=== PATIENT | female | born 2000 | race American Indian/Alaskan Native ===

== ENCOUNTER 2018-10-04 03:41 | Emergency (ER) | payer SELFPAY ==
[2018-10-04 04:01] VITALS: BP 111/64
[2018-10-04 04:28] LABS: Basophils # (Auto) 0.1 K/mm3 (0.0-0.1); Eosinophils # (Auto) 0.2 K/mm3 (0.0-0.4); Eosinophils % (Auto) 2.5 % (0.0-4.3); Hematocrit 35.5 % (30.3-42.9); Hemoglobin 11.8 gm/dl (10.1-14.3); Lymphocytes # (Auto) 3.1 K/mm3 (1.2-5.4); Lymphocytes % (Auto) 45.6 % (13.4-35.0); Mean Corpuscular HGB Conc 33 % (30-34); Mean Corpuscular Volume 87 fl (79-97); Monocytes # (Auto) 0.4 K/mm3 (0.0-0.8); Monocytes % (Auto) 5.6 % (0.0-7.3); Platelet Count 244 K/mm3 (140-440); Red Blood Count 4.08 M/mm3 (3.65-5.03); Red Cell Distribution Width 13.2 % (13.2-15.2)
[2018-10-04 04:42] LABS: Bilirubin,Urine NEG (Negative); Blood,Urine SM (Negative); Color,Urine Yellow (Yellow); Protein,Urine <15 mg/dL mg/dL (Negative); Urobilinogen,Urine < 2.0 mg/dL (<2.0)
[2018-10-04 04:43] LABS: Mucus,Urine 2+ /HPF
[2018-10-04 04:50] LABS: Alanine Aminotransferase 16 units/L (7-56); Albumin 3.9 g/dL (3.9-5); BUN/Creatinine Ratio 14; Blood Urea Nitrogen 10 mg/dL (7-17); Calcium 8.7 mg/dL (8.4-10.2); Hemolysis Index 2
--- NOTE | 2018-10-04 07:59 | Emergency Department Report ---
ED Abdominal Pain HPI - General Chief Complaint: Abdominal Pain Stated Complaint: ABDOMINAL PAIN Time Seen by Provider: 10/04/18 07:10 Source: patient Mode of arrival: Ambulatory Limitations: No Limitations - History of Present Illness Initial Comments: This is a 18-year-old -Burm[place] female who presents to the emergency room with suprapubic pain that is worse after intercourse. Patient reports pain is intermittent since August which has increased over the past 2 weeks. Patient reports last menstrual period was September 28, 2018 and last for 3 days, A1 miscarriage.. Patient states menstrual periods usually last 5-7 days. She also reports 2 menses last month within 2 weeks. Her last use of contraceptives were 1-2 years ago with the Depo-Provera injections. She also reports some nausea without vomiting. She denies urinary frequency, urgency, dysuria, vaginal discharge, and diarrhea. MD Complaint: abdominal pain Onset/Timin -: week(s) Location: suprapubic Radiation: none Migration to: no migration Severity: mild Severity scale (0 -10): 3 Quality: cramping Consistency: intermittent Improves With: nothing Worsens With: other (intercourse) Associated Symptoms: nausea. denies: vomiting, diarrhea, fever, chills, constipation, dysuria, hematemesis, hematochezia, melena, hematuria, anorexia, syncope - Related Data LMP Date: 09/28/18 Home Medications Medication Instructions Recorded Confirmed Last Taken risperiDONE [Risperdal] 3 mg PO QHS 04/02/13 05/31/14 04/02/[address] [Depakote Dr] 500 mg PO BID 12/06/13 05/31/14 Unknown FLUoxetine [PROzac] 10 mg PO QDAY 12/06/13 05/31/14 Unknown traZODone 100 mg PO QHS 05/31/14 05/31/14 Unknown Previous Rx's Medication Instructions Recorded Last Taken Type Fluconazole [Diflucan] 150 mg PO QDAY #2 tablet 06/01/14 Unknown Rx Nystatin Oint [Mycostatin Oint] 1 applicatio TP TID #15 gm 06/01/14 Unknown Rx Allergies Allergy/AdvReac Type Severity Reaction Status Date / Time No Known Allergies Allergy Verified 04/08/14 16:28 ED Review of Systems ROS: Stated complaint: ABDOMINAL PAIN Other details as noted in HPI Constitutional: denies: chills, fever Respiratory: denies: cough, shortness of breath, wheezing Cardiovascular: denies: chest pain, palpitations Gastrointestinal: abdominal pain, nausea. denies: vomiting, diarrhea Musculoskeletal: denies: back pain, joint swelling, arthralgia Skin: denies: rash, lesions Neurological: denies: headache, weakness, paresthesias Psychiatric: denies: anxiety, depression ED Past Medical Hx - Past Medical History Previous Medical History?: Yes Hx Seizures: Yes Hx Psychiatric Treatment: Yes (DEPRESSION, ANXIETY) Hx Asthma: Yes - Surgical History Past Surgical History?: Yes Additional Surgical History: d&c - Social History Smoking Status: Never Smoker Substance Use Type: None - Medications Home Medications: Home Medications Medication Instructions Recorded Confirmed Last Taken Type risperiDONE [Risperdal] 3 mg PO QHS 04/02/13 05/31/14 04/02/[address] [Depakote Dr] 500 mg PO BID 12/06/13 05/31/14 Unknown History FLUoxetine [PROzac] 10 mg PO QDAY 12/06/13 05/31/14 Unknown History traZODone 100 mg PO QHS 05/31/14 05/31/14 Unknown History Fluconazole [Diflucan] 150 mg PO QDAY #2 tablet 06/01/14 Unknown Rx Nystatin Oint [Mycostatin Oint] 1 applicatio TP TID #15 gm 06/01/14 Unknown Rx ED Physical Exam - General Limitations: No Limitations General appearance: alert, in no apparent distress - Respiratory Respiratory exam: Present: normal lung sounds bilaterally. Absent: respiratory distress - Cardiovascular Cardiovascular Exam: Present: regular rate, normal rhythm. Absent: systolic murmur, diastolic murmur, rubs, gallop - GI/Abdominal GI/Abdominal exam: Present: soft, normal bowel sounds. Absent: distended, tenderness, guarding, rebound, rigid, organomegaly, mass - Back Exam Back exam: Absent: CVA tenderness (R), CVA tenderness (L) - Neurological Exam Neurological exam: Present: alert, oriented X3, normal gait - Psychiatric Psychiatric exam: Present: normal affect, normal mood - Skin Skin exam: Present: warm, dry, intact, normal color. Absent: rash ED Course Vital Signs 10/04/18 04:01 Temperature 97.7 F Pulse Rate 50 L Respiratory 18 Rate Blood Pressure 111/64 O2 Sat by Pulse 100 Oximetry ED Medical Decision Making - Lab Data Result diagrams: 10/04/18 04:07 10/04/18 04:07 Lab Results 10/04/18 10/04/18 10/04/18 Range/Units 04:07 04:07 04:07 WBC 6.8 (4.5-11.0) K/mm3 RBC 4.08 (3.65-5.03) M/mm3 Hgb 11.8 (10.1-14.3) gm/dl Hct 35.5 (30.3-42.9) % MCV 87 (79-97) fl MCH 29 (28-32) pg MCHC 33 (30-34) % RDW 13.2 (13.2-15.2) % Plt Count 244 (140-440) K/mm3 Lymph % (Auto) 45.6 H (13.4-35.0) % Graham % (Auto) 5.6 (0.0-7.3) % Eos % (Auto) 2.5 (0.0-4.3) % Baso % (Auto) 1.0 (0.0-1.8) % Lymph # 3.1 (1.2-5.4) K/mm3 Graham # 0.4 (0.0-0.8) K/mm3 Eos # 0.2 (0.0-0.4) K/mm3 Baso # 0.1 (0.0-0.1) K/mm3 Seg Neutrophils % 45.3 (40.0-70.0) % Seg Neutrophils # 3.1 (1.8-7.7) K/mm3 Sodium 144 (137-145) mmol/L Potassium 3.6 (3.6-5.0) mmol/L Chloride 110.4 H (98-107) mmol/L Carbon Dioxide 27 (22-30) mmol/L Anion Gap 10 mmol/L BUN 10 (7-17) mg/dL Creatinine 0.7 (0.7-1.2) mg/dL Estimated GFR > 60 ml/min BUN/Creatinine Ratio 14 % Glucose 88 (65-100) mg/dL Calcium 8.7 (8.4-10.2) mg/dL Total Bilirubin 0.30 (0.1-1.2) mg/dL AST 19 (5-40) units/L ALT 16 (7-56) units/L Alkaline Phosphatase 38 (35-129) units/L Total Protein 6.7 (6.3-8.2) g/dL Albumin 3.9 (3.9-5) g/dL Albumin/Globulin Ratio 1.4 % HCG, Qual Negative (Negative) Urine Color (Yellow) Urine Turbidity (Clear) Urine pH (5.0-7.0) Ur Specific [place] (1.003-1.030) Urine Protein (Negative) mg/dL Urine Glucose (UA) (Negative) mg/dL Urine Ketones (Negative) mg/dL Urine Blood (Negative) Urine Nitrite (Negative) Urine Bilirubin (Negative) Urine Urobilinogen (<2.0) mg/dL Ur Leukocyte Esterase (Negative) Urine WBC (Auto) (0.0-6.0) /HPF Urine RBC (Auto) (0.0-6.0) /HPF U Epithel Cells (Auto) (0-13.0) /HPF Urine Mucus /HPF 10/04/18 Range/Units 04:15 WBC (4.5-11.0) K/mm3 RBC (3.65-5.03) M/mm3 Hgb (10.1-14.3) gm/dl Hct (30.3-42.9) % MCV (79-97) fl MCH (28-32) pg MCHC (30-34) % RDW (13.2-15.2) % Plt Count (140-440) K/mm3 Lymph % (Auto) (13.4-35.0) % Graham % (Auto) (0.0-7.3) % Eos % (Auto) (0.0-4.3) % Baso % (Auto) (0.0-1.8) % Lymph # (1.2-5.4) K/mm3 Graham # (0.0-0.8) K/mm3 Eos # (0.0-0.4) K/mm3 Baso # (0.0-0.1) K/mm3 Seg Neutrophils % (40.0-70.0) % Seg Neutrophils # (1.8-7.7) K/mm3 Sodium (137-145) mmol/L Potassium (3.6-5.0) mmol/L Chloride (98-107) mmol/L Carbon Dioxide (22-30) mmol/L Anion Gap mmol/L BUN (7-17) mg/dL Creatinine (0.7-1.2) mg/dL Estimated GFR ml/min BUN/Creatinine Ratio % Glucose (65-100) mg/dL Calcium (8.4-10.2) mg/dL Total Bilirubin (0.1-1.2) mg/dL AST (5-40) units/L ALT (7-56) units/L Alkaline Phosphatase (35-129) units/L Total Protein (6.3-8.2) g/dL Albumin (3.9-5) g/dL Albumin/Globulin Ratio % HCG, Qual (Negative) Urine Color Yellow (Yellow) Urine Turbidity Hazy (Clear) Urine pH 5.0 (5.0-7.0) Ur Specific [place] 1.024 (1.003-1.030) Urine Protein <15 mg/dl (Negative) mg/dL Urine Glucose (UA) Neg (Negative) mg/dL Urine Ketones Neg (Negative) mg/dL Urine Blood Sm (Negative) Urine Nitrite Neg (Negative) Urine Bilirubin Neg (Negative) Urine Urobilinogen < 2.0 (<2.0) mg/dL Ur Leukocyte Esterase Neg (Negative) Urine WBC (Auto) 2.0 (0.0-6.0) /HPF Urine RBC (Auto) 16.0 (0.0-6.0) /HPF U Epithel Cells (Auto) < 1.0 (0-13.0) /HPF Urine Mucus 2+ /HPF - Medical Decision Making This patient was seen by this provider. Vitals are stable and patient is in no acute distress. Labs were obtained. There are a small amount of blood found in the urinalysis but patient menstrual cycle ended 2 days ago. All other labs are unremarkable. Patient will need to follow-up with the wood cabinet finisher, a referral was provided. Patient discharged home stable. Critical care attestation.: If time is entered above; I have spent that time in minutes in the direct care of this critically ill patient, excluding procedure time. ED Disposition Clinical Impression: Abdominal pain Qualifiers: Abdominal location: lower abdomen, unspecified Qualified Code(s): R10.30 - Lower abdominal pain, unspecified Disposition: TO HOME OR SELFCARE Is pt being admited?: No Does the pt Need Aspirin: No Condition: Stable Instructions: Abdominal Pain (ED) Additional Instructions: Follow-up with the wood cabinet finisher from the referral list below. Return to the emergency room if worsening symptoms such as increasing abdominal pain and passage of a large blood clot. Referrals: [facility] [Outside] - 3-5 Days [facility] [Provider Group] - 3-5 Days [facility] [Provider Group] - 3-5 Days [facility] [Other] - 3-5 Days Forms: Work/School Release Form(ED) Time of Disposition: 08:00
== END 2018-10-04 08:07 | disposition home or self-care (01) ==
LOC: ED 03:41
DX: R10.30 Lower abdominal pain, unspecified (principal); R11.0 Nausea; F41.9 Anxiety disorder, unspecified; F32.9 Major depressive disorder, single episode, unspecified; J45.909 Unspecified asthma, uncomplicated; Z79.899 Other long term (current) drug therapy
CPT/HCPCS: 36415; 80053; 81001; 84703; 85025

== ENCOUNTER 2019-01-02 13:37 | Emergency (ER) | payer SELFPAY ==
--- NOTE | 2019-01-02 13:53 | Emergency Department Report ---
Blank Doc - Documentation Documentation: 18-year-old female that presents with some vaginal bleeding. Stated is about 6 weeks . This initial assessment/diagnostic orders/clinical plan/treatment(s) is/are subject to change based on patient's health status, clinical progression and re- assessment by fellow clinical providers in the ED. Further treatment and workup at subsequent clinical providers discretion. Patient/guardians urged not to elope from the ED as their condition may be serious if not clinically assessed and managed. Initial orders include: 1- Patient sent to [facility] for further evaluation and treatment 2- labs 3- UA 4- US OB
[2019-01-02 13:56] VITALS: BP 116/68
[2019-01-02 14:38] LABS: Bilirubin,Urine TNR (Negative); Blood,Urine TNR (Negative); Color,Urine TNR (Yellow); PH,Urine TNR (5.0-7.0); Protein,Urine TNR mg/dL (Negative); Urobilinogen,Urine TNR mg/dL (<2.0)
[2019-01-02 14:39] LABS: Bacteria,Urine TNR /HPF (Negative); Hyaline Casts,Urine TNR /LPF; Mucus,Urine TNR /HPF; RBC,Urine TNR /HPF (0.0-6.0); WBC,Urine TNR /HPF (0.0-6.0)
--- NOTE | 2019-01-02 14:48 | Ultrasound Report ---
ULTRASOUND OBSTETRIC Indication: vaginal bleeding Findings: Transabdominal and transvaginal imaging is performed. An intrauterine is identified. Gestational sac with yolk sac is seen. pole is not see n. No heartbeat could be documented. Gestational sac diameter equals 11 mm which would correlate to a 5 week 6 day gestation. Subchorionic hemorrhage is identified The ovaries are unremarkable. There is minimal free fluid. Impression: There is an intrauterine with calculated sonographic age of 5 weeks and 6 days. Gestational sac with yolk sac is seen. No heartbeat could be documented at this time. Correlation with serum beta hCG level is recommended. Follow-up ultrasound should be obtained as clin ically warranted to document viability. Signer Name: Herb Pak MD Signed: 01/02/2019 2:43 PM Workstation Name: [id number]
[2019-01-02 14:54] LABS: Bacteria,Urine 1+ /HPF (Negative); Bilirubin,Urine NEG (Negative); Blood,Urine LG (Negative); Color,Urine Yellow (Yellow); Mucus,Urine FEW /HPF; Urobilinogen,Urine < 2.0 mg/dL (<2.0); WBC,Urine < 1.0 /HPF (0.0-6.0)
[2019-01-02 14:57] LABS: RBC,Urine > 182.0 /HPF (0.0-6.0)
[2019-01-02 15:21] LABS: Basophils % (Auto) 0.6 % (0.0-1.8); Eosinophils # (Auto) 0.1 K/mm3 (0.0-0.4); Eosinophils % (Auto) 2.4 % (0.0-4.3); Hematocrit 36.7 % (30.3-42.9); Hemoglobin 12.1 gm/dl (10.1-14.3); Lymphocytes % (Auto) 32.7 % (13.4-35.0); Mean Corpuscular HGB Conc 33 % (30-34); Mean Corpuscular Volume 86 fl (79-97); Monocytes # (Auto) 0.4 K/mm3 (0.0-0.8); Monocytes % (Auto) 7.3 % (0.0-7.3); Platelet Count 215 K/mm3 (140-440); Red Blood Count 4.26 M/mm3 (3.65-5.03)
--- NOTE | 2019-01-02 15:44 | Emergency Department Report ---
HPI - General Chief Complaint: Vaginal Bleeding Time Seen by Provider: 01/02/19 13:52 - HPI HPI: 18-year-old female presents to the emergency department with a complaint of a 2 day history of some vaginal spotting all . The patient went to [facility] 4 days ago and found out she was there. She was given an outpatient [facility] referral for mid January. However the patient started having this vaginal spotting and some mild pelvic cramping so she came in to be seen. She has a past medical history of asthma, depression, seizures. She is not currently taking vitamins. Last menstrual cycle was 11/24/18. ED Past Medical Hx - Past Medical History Previous Medical History?: Yes Hx Seizures: Yes Hx Psychiatric Treatment: Yes (DEPRESSION, ANXIETY) Hx Asthma: Yes - Surgical History Past Surgical History?: Yes Additional Surgical History: d&c - Social History Smoking Status: Never Smoker Substance Use Type: None - Medications Home Medications: Home Medications Medication Instructions Recorded Confirmed Last Taken Type risperiDONE [Risperdal] 3 mg PO QHS 04/02/13 05/31/14 04/02/[address] [Per [place]] 500 mg PO BID 12/06/13 05/31/14 Unknown History FLUoxetine [PROzac] 10 mg PO QDAY 12/06/13 05/31/14 Unknown History traZODone 100 mg PO QHS 05/31/14 05/31/14 Unknown History Fluconazole [Diflucan] 150 mg PO QDAY #2 tablet 06/01/14 Unknown Rx Nystatin Oint [Mycostatin Oint] 1 applicatio TP TID #15 gm 06/01/14 Unknown Rx Vit-Fe Fumar-FA [ 1 tab PO QDAY #30 tablet 01/02/19 Unknown Rx Vitamin] ED Review of Systems ROS: Stated complaint: 6/8 WKS /BLEEDING Other details as noted in HPI Comment: All other systems reviewed and negative Constitutional: denies: chills, fever Respiratory: denies: shortness of breath Cardiovascular: denies: chest pain Gastrointestinal: denies: nausea, vomiting Genitourinary: other (pelvic pain, vaginal bleeding) Musculoskeletal: denies: back pain Physical Exam - Physical Exam Vital Signs: Vital Signs 01/02/19 13:53 Temperature 98.4 F Pulse Rate 64 Respiratory 16 Rate Blood Pressure 116/68 O2 Sat by Pulse 98 Oximetry Physical Exam: GENERAL: The patient is well-developed well-nourished. HENT: Normocephalic. Atraumatic. Patient has moist mucous membranes. EYES: Extraocular motions are intact. NECK: Supple. Trachea is midline. CHEST/LUNGS: Clear to auscultation. There is no respiratory distress noted. HEART/CARDIOVASCULAR: Regular. There is no tachycardia. There is no murmur. ABDOMEN: Abdomen is soft, nontender. Patient has normal bowel sounds. There is no abdominal distention. SKIN: Skin is warm and dry. NEURO: The patient is awake, alert, and oriented. The patient is cooperative. The patient has no focal neurologic deficits. Normal speech. MUSCULOSKELETAL: There is no tenderness or deformity.There is no evidence of acute injury. ED Course Vital Signs 01/02/19 13:53 Temperature 98.4 F Pulse Rate 64 Respiratory 16 Rate Blood Pressure 116/68 O2 Sat by Pulse 98 Oximetry ED Medical Decision Making - Lab Data Result diagrams: 01/02/19 14:44 - Radiology Data Radiology results: report reviewed ULTRASOUND OBSTETRIC Indication: vaginal bleeding Findings: Transabdominal and transvaginal imaging is performed. An intrauterine is identified. Gestational sac with yolk sac is seen. pole is not seen. No heartbeat could be documented. Gestational sac diameter equals 11 mm which would correlate to a 5 week 6 day gestation. Subchorionic hemorrhage is identified The ovaries are unremarkable. There is minimal free fluid. Impression: There is an intrauterine with calculated sonographic age of 5 weeks and 6 days. Gestational sac with yolk sac is seen. No heartbeat could be documented at this time. Correlation with serum beta hCG level is recommended. Follow-up ultrasound should be obtained as clinically warranted to document viability. - Medical Decision Making This patient presents to the emergency department with the complaint of some mild vaginal spotting and mild other discomfort while . Hemoglobin is greater than 12. Urinalysis is unremarkable for urinary tract infection. Beta hCG is about 10,000. ultrasound came back showing a gestational sac and yolk sac seen within the uterus but there is no pole or heart rate seen at this time. This may be a very early but also may be an impending miscarriage. Vital signs stable throughout her ED course. The patient will be discharged home to follow-up with an [facility] group in the next few days. She will need a repeat hormone level and possibly a repeat ultrasound. If the hormone level is increasing, this may be a viable . If the hormone level is decreasing, this is most likely an impending miscarriage. She was started on vitamins. She was given multiple local [facility] referrals. She will return to the ER with any worsening of her symptoms or any acute distress. - Differential Diagnosis , threatened miscarriage, spontaneous miscarriage, fibroids Critical Care Time: No Critical care attestation.: If time is entered above; I have spent that time in minutes in the direct care of this critically ill patient, excluding procedure time. ED Disposition Clinical Impression: Threatened Qualifiers: Weeks of gestation: less than 8 weeks Qualified Code(s): Z3A.01 - Less than 8 weeks gestation of Disposition: DC- TO HOME OR SELFCARE Is pt being admited?: No Condition: Stable Instructions: Threatened Miscarriage (ED), (ED) Additional Instructions: Please follow-up with an [facility] in the next few days. Your hormone level today was about 10,000. You will need a repeat hormone level and possibly a repeat ultrasound. If the hormone level is increasing, this may be a viable . If the hormone level is decreasing, this may be an impending miscarriage. I'm starting you on vitamins. I will give you multiple referrals for local [facility] groups. You can take Tylenol every 6 hours, using weight-based dosing on the back of the bottle, as needed for any discomfort. Otherwise do not take any other medications that are not prescribed by a physician. Return to the emergency Department with any worsening of your symptoms including increased vaginal bleeding or increased pelvic pain, or with any acute distress. Prescriptions: Vit-Fe Fumar-FA [ Vitamin] 1 tab PO QDAY #30 tablet Referrals: [facility] [Provider Group] - 2-3 Days [facility] [Provider Group] - 2-3 Days [facility] [Provider Group] - 2-3 Days Time of Disposition: 16:27
== END 2019-01-02 17:00 | disposition home or self-care (01) ==
LOC: ED 13:37
DX: O20.0 Threatened abortion (principal); O99.341 Other mental disorders complicating pregnancy, first trimester; F32.9 Major depressive disorder, single episode, unspecified; F41.9 Anxiety disorder, unspecified; Z3A.01 Less than 8 weeks gestation of pregnancy
CPT/HCPCS: 36415; 76801; 76817; 81001; 84702; 85025; 86900; 86901; 87086

== ENCOUNTER 2019-01-05 14:05 | Emergency (ER) | payer SELFPAY ==
[2019-01-05 14:15] VITALS: BP 102/66
--- NOTE | 2019-01-05 14:24 | Emergency Department Report ---
Blank Doc - Documentation Documentation: 18-year-old female that presents with 6 weeks with vaginal bleeding with a repeat HCG. Was here a few days ago and was sent by for a repeat HCG. This initial assessment/diagnostic orders/clinical plan/treatment(s) is/are subject to change based on patient's health status, clinical progression and re- assessment by fellow clinical providers in the ED. Further treatment and workup at subsequent clinical providers discretion. Patient/guardians urged not to elope from the ED as their condition may be serious if not clinically assessed and managed. Initial orders include: 1- Patient sent to [facility] for further evaluation and treatment 2- HCG test
[2019-01-05 16:41] LABS: Basophils % (Auto) 0.4 % (0.0-1.8); Eosinophils # (Auto) 0.1 K/mm3 (0.0-0.4); Eosinophils % (Auto) 2.3 % (0.0-4.3); Hematocrit 34.2 % (30.3-42.9); Hemoglobin 11.7 gm/dl (10.1-14.3); Lymphocytes # (Auto) 2.2 K/mm3 (1.2-5.4); Lymphocytes % (Auto) 33.5 % (13.4-35.0); Mean Corpuscular HGB Conc 34 % (30-34); Mean Corpuscular Volume 85 fl (79-97); Monocytes # (Auto) 0.5 K/mm3 (0.0-0.8); Monocytes % (Auto) 8.2 % (0.0-7.3); Platelet Count 214 K/mm3 (140-440); Red Blood Count 4.04 M/mm3 (3.65-5.03); Red Cell Distribution Width 12.5 % (13.2-15.2)
--- NOTE | 2019-01-05 17:03 | Emergency Department Report ---
<BRAYAN CANTU - Last Filed: 01/05/19 17:00> ED General Adult HPI - General Chief complaint: Vaginal Bleeding Stated complaint: 6 WEEKS /HERE ON WEDNESDAY/BLEEDING INCREASED Time Seen by Provider: 01/05/19 14:22 Source: patient Mode of arrival: Ambulatory Limitations: No Limitations - History of Present Illness Initial comments: Patient is a 18-year-old female who was here 3 days ago for vaginal bleeding in . Patient was estimated to be approximately 6 weeks . She started having some bleeding. Patient had a gestational sac present on ultrasound that with a yolk sac with no pole was seen at that time. Patient's Quant was 10,674. Patient is a positive for blood type. Patient states yesterday the bleeding got heavier and there was some clotting present. States that his back to light bleeding at this time - Related Data Home Medications Medication Instructions Recorded Confirmed Last Taken risperiDONE [Risperdal] 3 mg PO QHS 04/02/13 05/31/14 04/02/13 Divalproex [Per [place]] 500 mg PO BID 12/06/13 05/31/14 Unknown FLUoxetine [PROzac] 10 mg PO QDAY 12/06/13 05/31/14 Unknown traZODone 100 mg PO QHS 05/31/14 05/31/14 Unknown Previous Rx's Medication Instructions Recorded Last Taken Type Fluconazole [Diflucan] 150 mg PO QDAY #2 tablet 06/01/14 Unknown Rx Nystatin Oint [Mycostatin Oint] 1 applicatio TP TID #15 gm 06/01/14 Unknown Rx Vit-Fe Fumar-FA [ 1 tab PO QDAY #30 tablet 01/02/19 Unknown Rx Vitamin] Allergies Allergy/AdvReac Type Severity Reaction Status Date / Time No Known Allergies Allergy Verified 04/08/14 16:28 ED Review of Systems Comment: All other systems reviewed and negative ED Past Medical Hx - Past Medical History Hx Seizures: Yes Hx Psychiatric Treatment: Yes (DEPRESSION, ANXIETY) Hx Asthma: Yes - Surgical History Additional Surgical History: d&c - Social History Smoking Status: Never Smoker Substance Use Type: None - Medications Home Medications: Home Medications Medication Instructions Recorded Confirmed Last Taken Type risperiDONE [Risperdal] 3 mg PO QHS 01/26/14 03/26/15 01/26/[address] [Depakote Dr] 500 mg PO BID 12/06/13 05/31/14 Unknown History FLUoxetine [PROzac] 10 mg PO QDAY 12/06/13 05/31/14 Unknown History traZODone 100 mg PO QHS 05/31/14 05/31/14 Unknown History Fluconazole [Diflucan] 150 mg PO QDAY #2 tablet 06/01/14 Unknown Rx Nystatin Oint [Mycostatin Oint] 1 applicatio TP TID #15 gm 06/01/14 Unknown Rx Vit-Fe Fumar-FA [ 1 tab PO QDAY #30 tablet 01/02/19 Unknown Rx Vitamin] ED Physical Exam - General Limitations: No Limitations General appearance: alert, in no apparent distress - Head Head exam: Present: atraumatic, normocephalic - Eye Eye exam: Present: normal appearance - ENT ENT exam: Present: mucous membranes moist - Neck Neck exam: Present: normal inspection - Respiratory Respiratory exam: Present: normal lung sounds bilaterally. Absent: respiratory distress, wheezes, rales - Cardiovascular Cardiovascular Exam: Present: regular rate, normal rhythm, normal heart sounds. Absent: systolic murmur, diastolic murmur, rubs, gallop - GI/Abdominal GI/Abdominal exam: Present: soft, normal bowel sounds. Absent: distended, tenderness, guarding, rebound - Extremities Exam Extremities exam: Present: normal inspection - Back Exam Back exam: Present: normal inspection - Neurological Exam Neurological exam: Present: alert, oriented X3 - Psychiatric Psychiatric exam: Present: normal affect, normal mood - Skin Skin exam: Present: warm, dry, intact, normal color. Absent: rash ED Medical Decision Making - Lab Data Result diagrams: 01/05/19 15:43 ED Disposition Clinical Impression: Threatened , Vaginal bleeding affecting early Disposition: DC-01 TO HOME OR SELFCARE Condition: Stable Instructions: Threatened Miscarriage (ED) Additional Instructions: Your hCG Quant is 20,888. A follow-up with an [facility] SYSTEM[facility]NALY[facility] for continued care. Return to the emergency room if worsening symptoms. Referrals: [facility] [Provider Group] - 3-5 Days [facility] [Provider Group] - 3-5 Days [facility] [Provider Group] - 3-5 Days Forms: Work/School Release Form(ED) <EKATERINA SAMPSON - Last Filed: 01/05/19 19:04> ED Review of Systems ROS: Stated complaint: 6 WEEKS /HERE ON WEDNESDAY/BLEEDING INCREASED Other details as noted in HPI ED Course Vital Signs 01/05/19 01/05/19 14:12 15:28 Temperature 98.3 F Pulse Rate 88 Respiratory 20 20 Rate Blood Pressure 102/66 O2 Sat by Pulse 97 97 Oximetry - Reevaluation(s) Reevaluation #1: 01/05/19 18:[address] Cantu and 1710 pending hCG Quant. ED Medical Decision Making - Lab Data Result diagrams: 01/05/19 15:43 Lab Results 01/05/19 01/05/19 Range/Units 15:43 15:43 WBC 6.6 (4.5-11.0) K/mm3 RBC 4.04 (3.65-5.03) M/mm3 Hgb 11.7 (10.1-14.3) gm/dl Hct 34.2 (30.3-42.9) % MCV 85 (79-97) fl MCH 29 (28-32) pg MCHC 34 (30-34) % RDW 12.5 L (13.2-15.2) % Plt Count 214 (140-440) K/mm3 Lymph % (Auto) 33.5 (13.4-35.0) % [place] % (Auto) 8.2 H (0.0-7.3) % Eos % (Auto) 2.3 (0.0-4.3) % Baso % (Auto) 0.4 (0.0-1.8) % Lymph # 2.2 (1.2-5.4) K/mm3 Cherry # 0.5 (0.0-0.8) K/mm3 Eos # 0.1 (0.0-0.4) K/mm3 Baso # 0.0 (0.0-0.1) K/mm3 Seg Neutrophils % 55.6 (40.0-70.0) % Seg Neutrophils # 3.7 (1.8-7.7) K/mm3 HCG, Quant 50589 H (0-4) mIU/mL - Medical Decision Making Patient received from Dr. Cantu pending hCG Quant. Labs reviewed ECG double from previous visit. Referral to JAVA SYSTEMS ANALYST for follow-up. Mom instructed to remain on bed rest until she follow up with JAVA SYSTEMS ANALYST. Patient discharged home stable. Critical care attestation.: If time is entered above; I have spent that time in minutes in the direct care of this critically ill patient, excluding procedure time. ED Disposition Is pt being admited?: No Time of Disposition: 19:03
== END 2019-01-05 19:25 | disposition home or self-care (01) ==
LOC: ED 14:05
DX: O20.0 Threatened abortion (principal); Z3A.01 Less than 8 weeks gestation of pregnancy
CPT/HCPCS: 36415; 84702; 85025

== ENCOUNTER 2019-12-22 12:20 | Emergency (ER) | payer SELFPAY ==
[2019-12-22 12:59] VITALS: BP 125/76
--- NOTE | 2019-12-22 13:50 | Emergency Department Report ---
Upper Extremity - HPI Chief Complaint: Extremity Problem,Nontraumatic Stated Complaint: LT ARM/LEG SWOLLEN/CHEST Time Seen by Provider: 12/22/19 13:47 Upper Extremity: Left Arm Symptoms: Yes Limited Range of Movement, Yes Swelling, No Pain with Movement, No Deformity, No Numbness, No Weakness, No Bruising/Ecchymosis, No Laceration or Abrasion Other History: 19-year-old -[place] female presents to the emergency room complaining of left upper arm swelling and redness times a few days. Patient states that she has started working out on her arms at the gym as well as have donated plasma now she is not sure why she is having some swelling and mild pain. Patient reports his pain is a 3 out of 10. She denies any tea colored urine no dark urine, she is on control Nexplanon on her left arm. She denies any hematuria no shortness of breath chest pain no nausea no vomiting. ED Review of Systems ROS: Stated complaint: LT ARM/LEG SWOLLEN/CHEST Other details as noted in HPI ED Past Medical Hx - Past Medical History Previous Medical History?: Yes Hx Seizures: Yes Hx Psychiatric Treatment: Yes (DEPRESSION, ANXIETY) Hx Asthma: Yes - Surgical History Past Surgical History?: Yes Additional Surgical History: d&c - Social History Smoking Status: Never Smoker Substance Use Type: None - Medications Home Medications: Home Medications Medication Instructions Recorded Confirmed Last Taken Type risperiDONE [Risperdal] 3 mg PO QHS 04/02/13 05/31/14 04/02/[address] [Depakote Dr] 500 mg PO BID 12/06/13 05/31/14 Unknown History FLUoxetine [PROzac] 10 mg PO QDAY 12/06/13 05/31/14 Unknown History traZODone 100 mg PO QHS 05/31/14 05/31/14 Unknown History Fluconazole (Nf) [Diflucan] 150 mg PO QDAY #2 tablet 06/01/14 Unknown Rx Nystatin Oint [Mycostatin Oint] 1 applicatio TP TID #15 gm 06/01/14 Unknown Rx Vit-Fe Fumar-FA [ 1 tab PO QDAY #30 tablet 01/02/19 Unknown Rx Vitamin] Upper Extremity Exam - Exam General: Vital signs noted. No distress. Alert and acting appropriately. Head and Torso: No HEENT Abnormality, No Neck Tenderness, No Chest/Lungs Abnormality, No Abdominal Tenderness, No Back Tenderness Shoulder Exam: Yes Normal Range of Motion in Shoulder, No Shoulder Tenderness, No Clavicle Tenderness, No Shoulder Deformity, No AC Joint Tenderness Arm Exam: No Arm/Humerus Tenderness (Mild swelling full range of motion nontender to palpate), No Arm Deformity Elbow: Yes Normal Range of Motion in Elbow, No Elbow Tenderness, No Elbow Deformity Forearm: Yes Forearm Tenderness, No Forearm Deformity, No Pain with Pronation, No Pain with Supination Wrist: Yes Normal ROM in Wrist, No Wrist Tenderness, No Wrist Deformity, No Snuffbox Tenderness, No Pain with Axial Thumb Compression Hand: Yes Normal ROM in Digit(s), No Hand Tenderness, No Hand Deformity, No Digit Tenderness, No Digit(s) Deformity, No Tendon Dysfunction CMS Exam: Yes Normal Distal Pulses, Yes Normal Capillary Refill, Yes Normal Distal Sensation, No Broken Skin ED Course Vital Signs 12/22/19 12:56 Temperature 98.1 F Pulse Rate 63 Respiratory 16 Rate Blood Pressure 125/76 O2 Sat by Pulse 100 Oximetry ED Medical Decision Making - Radiology Data Radiology results: report reviewed Referring Physician:PARISH RAJPUTPatient Name:JAVI GUIDRYPatient ID:[id number] of :[id number]:FemaleAccession:[id number] Date:[id number] Status:Finalized Findings [place] [id number] Vascular Lab Report Signed Patient: JAVI GUIDRY MR#: [id number] : 2000 Acct:[id number] Age/Sex: 19 / F ADM Date: 12/22/19 Loc: ED Attending Dr: Ordering Physician: XUAN OLIVA Date of Service: 12/22/19 Procedure(s): VL venous duplex UE Accession Number(s): [id number] cc: XUAN OLIVA DUPLEX DOPPLER UPPER EXTREMITY VENOUS, LEFT INDICATION / CLINICAL INFORMATION: left upper arm swelling and pain. TECHNIQUE: Duplex doppler imaging was performed through the veins of the left upper extremity using venous compression and other maneuvers. COMPARISON: None available. FINDINGS: LEFT INTERNAL JUGULAR VEIN: Negative. LEFT SUBCLAVIAN VEIN: Negative. LEFT AXILLARY VEIN: Negative. LEFT BRACHIAL VEIN: Negative. LEFT FOREARM VEINS: Negative. LEFT BASILIC VEIN (SUPERFICIAL): Negative. ADDITIONAL FINDINGS: None. IMPRESSION: No sonographic evidence for DVT within the left upper extremity. Signer Name: Elza Dean MD Signed: 12/22/2019 2:31 PM Workstation Name: [id number] Transcribed By: SS Dictated By: ELZA DEAN Electronically Authenticated By: ELZA DEAN Signed Date/Time: 12/22/191430 DD/ 30 TD/TT: - Medical Decision Making 19-year-old -[place] female presents to the emergency room complaining of left upper arm swelling and redness times a few days. Patient states that she has started working out on her arms at the gym as well as have donated plasma now she is not sure why she is having some swelling and mild pain. Patient reports his pain is a 3 out of 10. She denies any tea colored urine no dark urine, she is on control Nexplanon on her left arm. She denies any hematuria no shortness of breath chest pain no nausea no vomiting. Ultrasound of left upper extremity is negative for any DVT. I stressed to patient she can take ibuprofen or Tylenol for pain management. Patient is to increase her water intake. And to follow-up with a primary care provider if symptoms persist. Critical care attestation.: If time is entered above; I have spent that time in minutes in the direct care of this critically ill patient, excluding procedure time. ED Disposition Clinical Impression: Left upper extremity swelling, Left upper arm pain Disposition: DC-01 TO HOME OR SELFCARE Is pt being admited?: No Does the pt Need Aspirin: No Condition: Stable Instructions: Paresthesia (ED) Additional Instructions: Ultrasound of left upper extremity is negative for any DVT. I stressed to patient she can take ibuprofen or Tylenol for pain management. Patient is to increase her water intake. And to follow-up with a primary care provider if symptoms persist. Referrals: [facility] [Provider Group] - 3-5 Days Forms: Work/School Release Form(ED)
--- NOTE | 2019-12-22 14:36 | Vascular Lab Report ---
DUPLEX DOPPLER UPPER EXTREMITY VENOUS, LEFT INDICATION / CLINICAL INFORMATION: left upper arm swelling and pain. TECHNIQUE: Duplex doppler imaging was performed through the veins of the left upper extremity using venous compr ession and other maneuvers. COMPARISON: None available. FINDINGS: LEFT INTERNAL JUGULAR VEIN: Negative. LEFT SUBCLAVIAN VEIN: Negative. LEFT AXILLARY VEIN: Negative. LEFT BRACHIAL VEIN: Negative. LEFT FOREARM VEINS: Negative. LEFT BASILIC VEIN (SUPERFICIAL): Negative. ADDITIONAL FINDINGS: None. IMPRESSION: No sonographic evidence for DVT within the left upper extremity. Signer Name: Kai Dean MD Signed: 12/22/2019 2:31 PM Workstation Name: [id number]
== END 2019-12-22 16:05 | disposition home or self-care (01) ==
LOC: ED 12:20
DX: M79.602 Pain in left arm (principal); G40.909 Epilepsy, unspecified, not intractable, without status epilepticus; F32.9 Major depressive disorder, single episode, unspecified; F41.9 Anxiety disorder, unspecified; Z79.899 Other long term (current) drug therapy
CPT/HCPCS: 99283